=== PATIENT | female | born 2000 | race Caucasian/White ===

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

== ENCOUNTER 2021-01-13 01:57 | Emergency (ER) | payer MEDICAID ==
[~2021-01-13] VITALS: Ht 160 cm; Wt 49.1 kg
[2021-01-13 02:02] VITALS: TEMP 97.8
[2021-01-13 04:02] LABS: COLLECTION METHOD CLEAN CATCH
[2021-01-13 04:08] LABS: MUCOUS Present /lpf; PH 6 (5-8); SQUAMOUS EPITHELIAL 0-2 /hpf; URINE APPEARANCE Clear; URINE BACTERIA None Seen /hpf; URINE BILIRUBIN Negative (NEGATIVE); URINE BLOOD Negative (NEGATIVE); URINE COLOR Amber; URINE GLUCOSE Negative (NEGATIVE); URINE KETONE Negative (NEGATIVE); URINE LEUKOCYTE ESTERASE 1+ (NEGATIVE); URINE NITRATE Positive (NEGATIVE); URINE PROTEIN(semi-quant) Negative (NEGATIVE); URINE UROBILINOGEN >=4.0 mg/dL (NEGATIVE)
[2021-01-13] MEDS ORDERED: MACROBID 1100 MG/CAP PO (04:26)
[2021-01-13 04:51] VITALS: BP 109/65; PULSE 67
== END 2021-01-13 04:51 | disposition home or self-care (01) ==
LOC: COL.ER 01:57
PROVIDERS: Emergency Medicine
DX: O26.891 Other specified pregnancy related conditions, first trimester (principal); H10.13 Acute atopic conjunctivitis, bilateral; O23.41 Unspecified infection of urinary tract in pregnancy, first trimester; Z3A.00 Weeks of gestation of pregnancy not specified

== ENCOUNTER 2021-01-29 14:19 | Emergency (ER) | payer MEDICAID ==
[~2021-01-29] VITALS: Ht 160 cm; Wt 51.4 kg
[2021-01-29 15:31] LABS: BASO # 0.1 (0.0-0.2); BASO % 0.4 % (0.0-2.0); EOS # 0.1 (0.0-0.7); GRAN # 8.6 (1.4-6.5); GRAN % 68.8 % (42.2-75.2); HEMOGLOBIN 11.5 g/dl (12.0-15.0); LYMPH # 3.1 (1.2-3.4); LYMPH % 24.3 % (20.0-51.0); MEAN CELL VOLUME 85 fl (80.0-95.0); MEAN CORPUSCULAR HEMOGLOBIN 28 pg (26.0-32.0); MEAN CORPUSCULAR HGB CONC 33 g/dl (33.0-37.0); MEAN PLATELET VOLUME 10.3 fl (7.4-10.4); MONO # 0.6 (0.1-0.6); MONO % 4.9 % (1.7-9.3); PLATELET COUNT 247 K/mm3 (130-400); RED BLOOD COUNT 4.13 M/mm3 (4.10-5.30); REDCELL DISTRIBUTION WIDTH-CV 14.8 % (11.5-14.5)
[2021-01-29 15:33] LABS: HEMATOCRIT 35.1 % (35.0-45.0)
[2021-01-29 15:41] LABS: COLLECTION METHOD CLEAN CATCH
[2021-01-29 15:41] LABS: ALBUMIN 3.6 gm/dL (3.5-5.0); BILIRUBIN,TOTAL 0.8 mg/dL (0.0-1.0); CALCIUM 8.9 mg/dL (8.4-10.2); CREATININE, serum 0.51 (0.52-1.25); POTASSIUM 3.8 mmol/L (3.4-5.0); TOTAL PROTEIN 6.9 gm/dL (6.4-8.2)
[2021-01-29 15:50] LABS: MUCOUS Present /lpf; PH 8 (5-8); URINE APPEARANCE Hazy; URINE BACTERIA Rare /hpf; URINE BILIRUBIN Negative (NEGATIVE); URINE BLOOD Negative (NEGATIVE); URINE COLOR Yellow; URINE GLUCOSE Negative (NEGATIVE); URINE KETONE Negative (NEGATIVE); URINE LEUKOCYTE ESTERASE 2+ (NEGATIVE); URINE NITRATE Negative (NEGATIVE); URINE PROTEIN(semi-quant) Negative (NEGATIVE); URINE RBC 0-2 /hpf; URINE UROBILINOGEN Negative (NEGATIVE)
[2021-01-29] MEDS ORDERED: CEPHALEXIN500 M1 PO (16:38)
[2021-01-29 16:58] VITALS: BP 96/67; PULSE 77; TEMP 98
== END 2021-01-29 17:03 | disposition home or self-care (01) ==
LOC: COL.ER 14:19
PROVIDERS: Physician Assistant
DX: O26.891 Other specified pregnancy related conditions, first trimester (principal); R10.32 Left lower quadrant pain; R10.31 Right lower quadrant pain; Z3A.14 14 weeks gestation of pregnancy
CPT/HCPCS: J7030

== ENCOUNTER 2021-03-05 01:17 | Outpatient (CLI) | payer MEDICAID ==
[~2021-03-05] VITALS: Ht 160 cm; Wt 54.1 kg
--- NOTE | 2021-03-05 01:20 | NUR ---
0120 G2L1 20 WEEK GEST TO LR3 WITH C/O LEFT SIDE PAIN STARTING TONIGHT. RATES PAIN 8/10. PT QUIET IN BED NOT MOVING OR HOLDING SIDE. APPEARS COMFORTABLE. FHT'S DOPPLED WITH 150'S OBTAINED. NO TIGHTENING FELT OF UTERUS. STATES HAS HAD VOMITING MOST DAYS BUT HAS KEPT FOOD AND FLUID DOWN TODAY. HAS HAD BM TODAY. HAD HX OF UTI BUT DOES NOT FEEL THIS PAIN IS THE SAME. NO VAG BLEEDING NOTED TODAY. 0130 DR PLAZA IN ROOM TO VISIT WITH PT. ORDER FOR TYLENOL RECEIVED. 0145 TYLENOL 1000 MG PO GIVEN. ADM ASSESSMENT COMPLETED.
[2021-03-05 01:25] VITALS: BP 114/77; PULSE 69; TEMP 98.6
--- NOTE | 2021-03-05 02:15 | NUR ---
0215 STATES PAIN IS STILL THERE BUT FEELS BETTER. DISMISSAL INSTRUCTIONS GIVEN. 0220 HOME WITH INSTRUCTIONS.
== END 2021-03-05 02:15 | disposition home or self-care (01) ==
LOC: LDRO 01:17 → LDR 01:35 → LDRO 02:15
DX: O26.892 Other specified pregnancy related conditions, second trimester (principal); R10.9 Unspecified abdominal pain; Z3A.20 20 weeks gestation of pregnancy
CPT/HCPCS: OP

== ENCOUNTER 2021-05-17 21:17 | Emergency (ER) | payer MEDICAID | END 2021-05-17 21:38 | disposition left against medical advice (07) | LOC: COL.ER 21:17 | DX: R53.81 Other malaise (principal) ==

== ENCOUNTER 2021-06-07 22:26 | Outpatient (CLI) | payer MEDICAID ==
[~2021-06-07] VITALS: Ht 160 cm; Wt 61.0 kg
--- NOTE | 2021-06-07 22:35 | NUR ---
Ambulatory to unit for assessment, accompanied by friend. Pt reports "the baby hasn't moved very much since 3pm. I also have a back ache and lower abd pain" Orineted to room, monitor, plan of .
[2021-06-07] MEDS ORDERED: ASPIRIN 81M81 MG/TA2 PO (23:11)
== END 2021-06-07 23:30 | disposition home or self-care (01) ==
LOC: LDRO 22:26
DX: O36.8130 Decreased fetal movements, third trimester, not applicable or unspecified (principal); M54.50 Low back pain, unspecified; R10.30 Lower abdominal pain, unspecified; Z3A.33 33 weeks gestation of pregnancy

== ENCOUNTER 2021-07-17 06:30 | Inpatient (IN) | payer MEDICAID ==
[~2021-07-17] VITALS: Ht 160 cm; Wt 65.9 kg
[2021-07-17] VITALS (56 sets, daily range): BP systolic 97–141; BP diastolic 56–90; PULSE 68–118; TEMP 98–98.6
--- NOTE | 2021-07-17 05:55 | NUR ---
0555- 39.1 G2L1 arrives on unit for scheduled IOL for IUGR. Ambualtory to LDR3. EFM explained and placed. VS obtained. Patient reports normal movement. Denies any LOF, VB, or regular contractions. 0700- This RN to bedside. Plan of care discussed. Assessment completed, consent forms explained and signed. 0800- IV to left FA. Routine labs obtained. IV to NSL. 09- Dr. Abreu to bedside, and reviews plan of care with pt who verbalizses understanding. SVE by provider /-[id number]. Pt wedge left. 1000- Pitocin explained and started at 2mu per orders. Pt resting with call light within reach.
[~2021-07-17 06:30] MED LIST changes: +ASPIRIN 81M81 MG/TA2 PO
[2021-07-17 08:09] LABS: HEMOGLOBIN 10.7 g/dl (12.0-15.0); MEAN CELL VOLUME 77 fl (80.0-95.0); MEAN CORPUSCULAR HEMOGLOBIN 24 pg (26-32); MEAN CORPUSCULAR HGB CONC 31 g/dl (33.0-37.0); MEAN PLATELET VOLUME 11.3 fl (7.4-10.4); PLATELET COUNT 199 K/mm3 (130-400); RED BLOOD COUNT 4.45 M/mm3 (4.10-5.30); REDCELL DISTRIBUTION WIDTH-CV 16.3 % (11.5-14.5)
[2021-07-17 08:12] LABS: HEMATOCRIT 34.3 % (35.0-45.0)
[2021-07-17] MEDS ORDERED: PRENATAL TABLET PO (08:16)
[2021-07-17] MEDS ORDERED: PROAIR HFA0.09 MG/AC IH (08:16)
[2021-07-17 08:57] LABS: BAND 2 % (0-10); EOSINOPHIL 1 % (0-4); LYMPHOCYTE 33 % (20.0-51.0); METAMYELOCYTE 1 % (0-0); NEUTROPHILS 55 % (42.0-75.2); PLATELET ESTIMATE NORMAL (NORMAL)
--- NOTE | 2021-07-17 13:00 | NUR ---
Bilateral side lying hip release.
--- NOTE | 2021-07-17 14:47 | NUR ---
Pt supine for catheter placement. FHR decel audible to 60-70bmp x90 seconds. SVE 5/80/-2. Pt left lateral, LR bolus infusing, pitocin paused. 1450- FHR returns to baseline. Pitocin resumed at 18mu. Dr. Abreu updated on pt. See physician notification.
--- NOTE | 2021-07-17 18:30 | NUR ---
Report received, care assumed. Patient sitting upright in high fowlers position, tense and breathing through contractions. Patient reports lower abdominal and rectal pressure. Dr. Abreu at bedside, SVE /0. NETWORK SYSTEMS ENGINEER notified of increased pain with contractions.
--- NOTE | 2021-07-17 19:32 | NUR ---
Patient still uncomfortable with contractions, tense and breathing through them. 1927 Dr. Abreu at bedside, SVE complete/+1. Patient begins to push with contractions. 193 Spontaneous vaginal delivery of viable male infant by Dr. Abreu, cord clamped and cut and infant to the care of the nursery RN. 1939 Spontaneous delivery of placenta by Dr. Abreu, pitocin infusing at 333ml/hr per orders and protocol. 1943 Methergine given IM in left thigh per orders. 1947 Fundus firm with massage, jhonathan WNL.
[2021-07-18 02:45] VITALS: BP 106/64; PULSE 82; TEMP 97.4
[2021-07-18] MEDS ORDERED: IBU800 M1 PO (08:28)
[2021-07-18] MEDS ORDERED: TYLENOL 500MG500 MG PO (08:28)
[2021-07-18 09:00] VITALS: BP 94/50; PULSE 79; TEMP 98.2
--- NOTE | 2021-07-18 09:20 | NUR ---
Initial visit; Patient thanked Ethics Officer for offering congratulations and God's blessings for the of her son. Ethics Officer thanked patient for choosing [facility].
[2021-07-18 13:50] VITALS: BP 96/68; PULSE 82
[2021-07-18 17:30] VITALS: BP 99/56; PULSE 76; TEMP 97.4
[2021-07-18 21:00] VITALS: BP 96/46; PULSE 66; TEMP 97.9
--- NOTE | 2021-07-18 21:33 | NUR ---
PT UP AMBULATING HALLWAYS. IN [facility].
[2021-07-19 04:45] VITALS: BP 100/55; PULSE 63
[2021-07-19 07:30] VITALS: BP 97/63; PULSE 75; TEMP 98
--- NOTE | 2021-07-19 10:03 | NUR ---
DISCHARGE TEACHING COMPLETED. EDUCATED ON FOLLOW UP APPOINMENT AND PRESCRIPTIONS. QUESTIONS INVITED AND ANSWERED.
== END 2021-07-19 10:35 | disposition home or self-care (01) | DRG 806 ==
LOC: OB → LDR 06:30 → OB 06:30
PROVIDERS: ADMIT Student in an Organized Health Care Education/Training Program
PROC: 10E0XZZ Delivery of Products of Conception, External Approach (ICD-10-PCS; principal; 2021-07-17)
PROC: 0KQM0ZZ Repair Perineum Muscle, Open Approach (ICD-10-PCS; 2021-07-17)
PROC: 3E033VJ Introduction of Other Hormone into Peripheral Vein, Percutaneous Approach (ICD-10-PCS; 2021-07-17)
PROC: 10907ZC Drainage of Amniotic Fluid, Therapeutic from Products of Conception, Via Natural or Artificial Opening (ICD-10-PCS; 2021-07-17)
DX: O36.5930 Maternal care for other known or suspected poor fetal growth, third trimester, not applicable or unspecified (principal); O72.1 Other immediate postpartum hemorrhage; Z37.0 Single live birth; O99.344 Other mental disorders complicating childbirth; F41.9 Anxiety disorder, unspecified; F32.A Depression, unspecified; O99.52 Diseases of the respiratory system complicating childbirth; J45.909 Unspecified asthma, uncomplicated; O99.02 Anemia complicating childbirth; D64.9 Anemia, unspecified; O99.62 Diseases of the digestive system complicating childbirth; K58.9 Irritable bowel syndrome, unspecified; O76 Abnormality in fetal heart rate and rhythm complicating labor and delivery; O70.1 Second degree perineal laceration during delivery; Z3A.39 39 weeks gestation of pregnancy
CPT/HCPCS: J2210; J2405; J2590; J2795; J7120

== ENCOUNTER 2021-08-26 21:19 | Emergency (ER) | payer MEDICAID ==
[~2021-08-26 21:19] MED LIST changes: +IBU800 M1 PO; +TYLENOL 500MG500 MG PO
== END 2021-08-26 22:00 | disposition left against medical advice (07) ==
LOC: COL.ER 21:19
DX: J98.9 Respiratory disorder, unspecified (principal)

== ENCOUNTER 2021-12-21 19:02 | Emergency (ER) | payer MEDICAID ==
[~2021-12-21] VITALS: Ht 160 cm; Wt 72.7 kg
[2021-12-21 19:12] VITALS: TEMP 97.4
[2021-12-21] MEDS ORDERED: REGLAN 10MG10 MG/TAB PO (20:01)
[2021-12-21 20:13] VITALS: BP 111/74; PULSE 79
== END 2021-12-21 20:15 | disposition home or self-care (01) ==
LOC: COL.ER 19:02
DX: O20.9 Hemorrhage in early pregnancy, unspecified (principal); O21.9 Vomiting of pregnancy, unspecified; Z3A.08 8 weeks gestation of pregnancy; Z28.310 Unvaccinated for COVID-19

== ENCOUNTER 2022-07-26 07:59 | Inpatient (IN) | payer MEDICAID ==
[~2022-07-26] VITALS: Ht 161.3 cm; Wt 69.1 kg
[2022-07-26] VITALS (19 sets, daily range): BP systolic 103–134; BP diastolic 58–91; PULSE 65–112; TEMP 98–98.4
[~2022-07-26 07:59] MED LIST changes: +REGLAN 10MG10 MG/TAB PO
--- NOTE | 2022-07-26 08:25 | NUR ---
PATIENT TRANSPORTED TO UNIT VIA WHEELCHAIR. PATIENT ORIENTED TO ROOM 209 AND ASSISTED INTO A GOWN. PATIENT DENIES LEAKING OF FLUID, VAGINAL BLEEDING, CONTRACTIONS, AND REPORTS GOOD MOVEMENT. PATIENT APPEARS ANXIOUS FOR C SECTION BECUASE HER LAST DELIVERIES WERE VAGINAL. PLAN OF CARE EXPLAINED TO PATIENT AT THIS TIME. ASSESSMENTS COMPLETED AND CONSENTS SIGNED
[2022-07-26] MEDS ORDERED: ZOVIRAX400 MG PO (08:44)
[2022-07-26 08:48] LABS: BASO # 0.1 K/mm3 (0.0-0.2); BASO % 0.4 % (0.0-2.0); EOS # 0.1 K/mm3 (0.0-0.7); EOS % 0.4 % (0.0-4.0); GRAN # 10.4 K/mm3 (1.4-6.5); GRAN % 76.2 % (42.2-75.2); LYMPH # 2.4 K/mm3 (1.2-3.4); LYMPH % 17.5 % (20.0-51.0); MEAN CELL VOLUME 70 fl (80.0-100.0); MEAN CORPUSCULAR HGB CONC 31 g/dl (33.0-37.0); MEAN PLATELET VOLUME 11.2 fl (7.4-10.4); MONO # 0.7 K/mm3 (0.1-0.6); MONO % 4.7 % (1.7-9.3); PLATELET COUNT 224 K/mm3 (130-400); RED BLOOD COUNT 4.45 M/mm3 (4.10-5.30); REDCELL DISTRIBUTION WIDTH-CV 18.3 % (11.5-14.5)
[2022-07-26 08:53] LABS: HEMATOCRIT 31.3 % (37.0-47.0); HEMOGLOBIN 9.6 g/dl (12.5-16.0); MEAN CORPUSCULAR HEMOGLOBIN 22 pg (27-31)
--- NOTE | 2022-07-26 09:42 | NUR ---
UTERINE ATONY OBSERVED BY AND METHERGINE REQUESTED BY LUCIEN PRECIADO. METHERGINE ADMINISTERED PER OZZY AT THIS TIME
[2022-07-26 14:43] LABS: HEMATOCRIT 24.7 % (37.0-47.0); HEMOGLOBIN 7.6 g/dl (12.5-16.0)
--- NOTE | 2022-07-26 17:45 | NUR ---
1725- THIS RN AT BEDSIDE TO GIVE PATIENT MEDS. PATIENT REPORTS "MY FEET HAVE BEEN BLUE AND PURPLE AND I FEEL LIKE MY CHEST HAS A LOT OF PRESSURE AND IT MAKES IT HARD TO BREATHE". THIS RN REASSURES THE BLUE FEET MAY BE FROM HER LOW HEMAGLOBIN LEVEL AND THAT WE WILL BE WATCHING HER VITALS CLOSELY TO MAKE SURE SHE IS OKAY. THIS RN ASSESSES VITAL SIGNS WNL AND CLEAR LUNG SOUNDS. WHEN RETURNED TO ROOM PATIENT STATES "I DON'T FEEL IT ANYMORE" THIS RN REASSURES THE PATIENT TO REPORT ANY WORSENING SYMPTOMS OR NEW SYMPTOMS THAT ARE WORRYING HER.
[2022-07-27] VITALS (14 sets, daily range): BP systolic 97–112; BP diastolic 54–75; PULSE 16–88; TEMP 97.5–98.6
--- NOTE | 2022-07-27 00:42 | NUR ---
THIS NURSE TO MOTHER'S ROOM AFTER MOTHER CALLED OUT STATED SHE VOIDED. PATIENT STATES SHE DID NOT FEEL LIKE SHE NEEDED TO VOID, BUT WAS AWAKE AND DECIDED TO TRY. PATIENT'S LAST VOID WAS AT 2044 AND WAS 200 ML. THIS NURSE ASSESSED PATIENT'S VOID AT 0030, PATIENT VOIDED 150 ML. PATIENT REPORTS "I FELT LIKE I HAD THE URGE WHEN I TRIED TO GO AND THEN IT WENT AWAY AND I HAD A PAIN AND THEN I BEGAN TO PEE". THIS NURSE ASKED THE PATIENT WHERE THE PAIN WAS AND SHE DESCRIBED IT TO BE IN THE VAGINAL AREA. PATIENT REPORTS A MILD BURNING WITH THIS VOID. PATIENT THEN REPORTED TO THIS NURSE THAT SHE THINKS SHE MAY HAVE HAD A UTI BEFORE COMING IN FOR HER SCHEDULED . PATIENT REPORTS TAKING "AZOS" MEDICATION SATURADAY NIGHT AROUND 2300. THIS NURSE EDUCATED MOTHER AND ENCOURAGED HER TO CONTINUE CONSUMING FLUIDS AND TO CONTINUE TO ATTEMPT VOIDING EVERY FEW HOURS. THIS NURSE WILL CONTINUE TO GET PATIENT UP FOR VOIDS AND WILL CONTINUE TO MEASURE PT VOIDS AT THIS TIME.
--- NOTE | 2022-07-27 04:15 | NUR ---
PATIENT UP TO VOID AGAIN. 150 ML VOID RECORDED. PATIENT STATES THIS VOID "FELT NORMAL". PT DENIES FEELINGS OF URINARY RETENTION. DENIES FEELINGS OF BLADDER PRESSURE, PAIN, FEELINGS OF INCOMPLETE EMPTYING. PT STATES "I DID NOT REALLY DRINK ANY WATER BETWEEN MY LAST VOID AND THIS ONE BECAUSE I WAS ASLEEP". THIS NURSE EDUCATED PT AND WILL CONTINUE MONITORING INTAKE AND OUTPUT AT THIS TIME.
[2022-07-27 06:47] LABS: HEMATOCRIT 20.9 % (37.0-47.0); HEMOGLOBIN 6.1 g/dl (12.5-16.0)
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
--- NOTE | 2022-07-27 10:06 | NUR ---
Initial visit; Parents thanked Landscaper for for looking in on them. Landscaper offered congratulations and God's blessings for the of their son. Landscaper let them know if they decide they would like their son "Blessed," to inform the Nurse and she will contact Landscaper to return and administer the [place]. They thanked Landscaper.
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
[2022-07-27 17:59] LABS: HEMATOCRIT 30.6 % (37.0-47.0); HEMOGLOBIN 9.5 g/dl (12.5-16.0)
[2022-07-28 07:45] VITALS: BP 104/61; PULSE 61; TEMP 98
[2022-07-28] MEDS ORDERED: IBU600 MG PO (08:16)
[2022-07-28] MEDS ORDERED: IRON TABLETS325 MG PO (08:16)
[2022-07-28] MEDS ORDERED: ROXICODONE 55 MG/TAB PO (08:17)
[2022-07-28] MEDS ORDERED: TYLENOL 500MG500 MG PO (08:17)
--- NOTE | 2022-07-28 13:21 | NUR ---
THIS PRESSING MACHINE OPERATOR ASSUMES CARE OF PATIENT FROM LAYO THOMAS RN.
== END 2022-07-28 17:07 | disposition home or self-care (01) | DRG 787 ==
LOC: OB 07:59
PROVIDERS: ADMIT Obstetrics & Gynecology
PROC: 10D00Z1 Extraction of Products of Conception, Low, Open Approach (ICD-10-PCS; principal; 2022-07-26)
DX: O32.1XX0 Maternal care for breech presentation, not applicable or unspecified (principal); D62 Acute posthemorrhagic anemia; O98.32 Other infections with a predominantly sexual mode of transmission complicating childbirth; O72.1 Other immediate postpartum hemorrhage; Z37.0 Single live birth; A60.09 Herpesviral infection of other urogenital tract; O99.03 Anemia complicating the puerperium; O99.52 Diseases of the respiratory system complicating childbirth; J45.909 Unspecified asthma, uncomplicated; O99.62 Diseases of the digestive system complicating childbirth; K21.9 Gastro-esophageal reflux disease without esophagitis; O99.344 Other mental disorders complicating childbirth; F41.9 Anxiety disorder, unspecified; F32.A Depression, unspecified; Z3A.39 39 weeks gestation of pregnancy
CPT/HCPCS: J0171; J0690; J1885; J2175; J2370; J2405; J2590; J7120; P9016

== ENCOUNTER 2023-07-21 16:02 | Emergency (ER) | payer MEDICAID ==
[~2023-07-21] VITALS: Ht 160 cm; Wt 57.5 kg
[~2023-07-21 16:02] MED LIST changes: +AEROSOL THERAPY1 DEV INH; +ALBUTEROL0.83 MG/ML IH; +IRON TABLETS325 MG PO; +ROXICODONE 55 MG/TAB PO; +VENTOLIN0.09 MG IH; +ZOFRAN ODT4 MG PO; +ZOVIRAX400 MG PO
[2023-07-21 16:08] VITALS: BP 160/76; TEMP 98.7
[2023-07-21 17:28] VITALS: PULSE 62
== END 2023-07-21 17:28 | disposition home or self-care (01) ==
LOC: COL.ER 16:02
DX: S90.01XA Contusion of right ankle, initial encounter (principal); W18.40XA Slipping, tripping and stumbling without falling, unspecified, initial encounter; W22.03XA Walked into furniture, initial encounter

== ENCOUNTER 2023-10-10 22:07 | Emergency (ER) | payer MEDICAID ==
[2023-10-10 22:12] VITALS: TEMP 98.1
[2023-10-10 22:36] LABS: COLLECTION METHOD CLEAN CATCH
[2023-10-10 22:58] LABS: URINE APPEARANCE CLOUDY (CLEAR/HAZY); URINE BLOOD 2+ (NEGATIVE); URINE COLOR RED (YELLOW); URINE GLUCOSE NEGATIVE (NEGATIVE); URINE NITRATE POSITIVE (NEGATIVE); URINE PROTEIN(semi-quant) 1+ (NEGATIVE)
[2023-10-10 23:22] LABS: URINE KETONE 1+ (NEGATIVE)
[2023-10-11] MEDS ORDERED: PYRIDIUM 100MG100 MG PO (00:12)
[2023-10-11] MEDS ORDERED: MACROBID 1100 MG/CAP PO (00:12)
[2023-10-11] MEDS ORDERED: Nitrofurantoin (Mono/Macro) 100 MG CAP PO ONE (00:15)
[2023-10-11 00:19] VITALS: BP 109/69; PULSE 53
[2023-10-11] MEDS ORDERED: MONODOX100 PO (00:37)
== END 2023-10-11 00:33 | disposition home or self-care (01) ==
LOC: COL.ER 22:07
PROVIDERS: Emergency Medicine
DX: N39.0 Urinary tract infection, site not specified (principal); R31.9 Hematuria, unspecified; F17.200 Nicotine dependence, unspecified, uncomplicated; Z88.0 Allergy status to penicillin

== ENCOUNTER 2023-10-13 23:50 | Emergency (ER) | payer MEDICAID ==
[~2023-10-13] VITALS: Ht 160 cm; Wt 51.9 kg
[~2023-10-13 23:50] MED LIST changes: +MONODOX100 PO; +PYRIDIUM 100MG100 MG PO
[2023-10-13 23:55] VITALS: TEMP 97.5
[2023-10-14] MEDS ORDERED: Ondansetron 4 MG/2 ML VIAL IV PRN (00:15)
[2023-10-14] MEDS ORDERED: NS 1,000 ML IV ONE (00:15)
[2023-10-14] MEDS ORDERED: cefTRIAXone 1 G in Water For Injection,Sterile 10 ML IV ONE (00:15)
[2023-10-14] MEDS ORDERED: Morphine 4 MG/ML VIAL IV PRN (00:15)
[2023-10-14 00:43] LABS: BASO # 0.1 K/mm3 (0.0-0.2); BASO % 0.5 % (0.0-2.0); EOS # 0.1 K/mm3 (0.0-0.7); EOS % 0.6 % (0.0-4.0); GRAN # 6.5 K/mm3 (1.4-6.5); GRAN % 57.7 % (42.2-75.2); HEMATOCRIT 39.9 % (37.0-47.0); LYMPH % 35.4 % (20.0-51.0); MEAN CELL VOLUME 86 fl (80.0-100.0); MEAN CORPUSCULAR HEMOGLOBIN 28 pg (27-31); MEAN CORPUSCULAR HGB CONC 33 g/dl (33.0-37.0); MONO # 0.6 K/mm3 (0.1-0.6); MONO % 5.5 % (1.7-9.3); PLATELET COUNT 256 K/mm3 (130-400); RED BLOOD COUNT 4.64 M/mm3 (4.10-5.30); REDCELL DISTRIBUTION WIDTH-CV 13.4 % (11.5-14.5)
[2023-10-14 01:01] LABS: ALBUMIN 3.8 g/dL (3.5-5.0); BILIRUBIN,TOTAL 0.9 mg/dL (0.2-1.2); CALCIUM 9.6 mg/dL (8.4-10.2); CREATININE, serum 0.75 mg/dL (0.57-1.11); POTASSIUM 3.7 mEq/L (3.5-4.5); TOTAL PROTEIN 6.8 g/dl (6.2-8.1)
[2023-10-14] MEDS ORDERED: Iohexol 300 - 100 ML VIAL IV ONE (01:15)
[2023-10-14] MEDS ORDERED: NS 50 ML IV ONE (01:17)
[2023-10-14] MEDS ORDERED: NORCO 325 MG-51 TAB PO (02:34)
[2023-10-14] MEDS ORDERED: CIPRO 500MG TA500 MG PO (02:34)
[2023-10-14 02:40] VITALS: BP 104/87; PULSE 57
== END 2023-10-14 02:47 | disposition home or self-care (01) ==
LOC: COL.ER 23:50
PROVIDERS: Personal Emergency Response Attendant
DX: N39.0 Urinary tract infection, site not specified (principal); K59.00 Constipation, unspecified; Z88.0 Allergy status to penicillin
CPT/HCPCS: J0696; J2270; J2405; J7030; Q9967